=== PATIENT | female | born 1970 ===

== ENCOUNTER 2021-08-03 10:39 | Emergency (ER) | payer MEDICAID ==
[~2021-08-03] VITALS: Ht 162.6 cm; Wt 86.2 kg
[2021-08-03 11:03] VITALS: BP 129/92
[2021-08-03] MEDS ORDERED: KETOROLAC TROMETH 60MG/2ML VIAL IM ONE (11:45)
[2021-08-03] MEDS ORDERED: IBUP800T27 PO (11:54)
== END 2021-08-03 12:12 | disposition home or self-care (01) ==
LOC: ER 10:39
DX: S93.401A Sprain of unspecified ligament of right ankle, initial encounter (principal); E78.5 Hyperlipidemia, unspecified; Z79.1 Long term (current) use of non-steroidal anti-inflammatories (NSAID); X58.XXXA Exposure to other specified factors, initial encounter; Y93.89 Activity, other specified; Y92.89 Other specified places as the place of occurrence of the external cause; Y99.8 Other external cause status
CPT/HCPCS: 73610; 99283; J1885

== ENCOUNTER 2021-08-09 11:45 | Emergency (ER) | payer MEDICAID ==
[~2021-08-09] VITALS: Ht 162.6 cm; Wt 86.2 kg
[~2021-08-09 11:45] MED LIST: IBUP800T27 PO
[2021-08-09 12:33] VITALS: BP 141/87
== END 2021-08-09 14:14 | disposition home or self-care (01) ==
LOC: ER 11:45
DX: N60.02 Solitary cyst of left breast (principal); M54.41 Lumbago with sciatica, right side
CPT/HCPCS: 72100; 76642